=== PATIENT | female | born 1970 | race Caucasian/White ===

== ENCOUNTER 2023-06-24 18:56 | Emergency (ER) | payer MEDICAID, MEDICARE ==
[~2023-06-24] VITALS: Ht 160 cm; Wt 81.8 kg
[~2023-06-24 18:56] MED LIST: ARIP30TA PO; DIVA250T4 PO; MIRT-149 PO
[2023-06-24 19:45] LABS: BASOPHILS % (AUTO) 0.3 % (0.0-2.0); EOSINOPHILS % (AUTO) 0.1 % (1.0-6.0); HEMATOCRIT 39.5 % (36-46); LYMPHOCYTES # (AUTO) 2.1 K/uL (1.0-4.8); LYMPHOCYTES % (AUTO) 17.4 % (22.0-44.0); MEAN CORPUSCULAR HEMOGLOBIN 29.2 pg (26.0-34.0); MEAN CORPUSCULAR HGB CONC 32.8 G/dL (31.0-37.0); MEAN CORPUSCULAR VOLUME 89 fL (80-100); MONOCYTES # (AUTO) 0.7 K/uL (0.1-1.0); MONOCYTES % (AUTO) 5.9 % (2.0-9.0); NEUTROPHILS # (AUTO) 9.3 K/uL (1.8-7.7); NEUTROPHILS % (AUTO) 76.3 % (40.0-70.0); PLATELET COUNT (AUTO) 235 K/uL (150-450); RED BLOOD CELL COUNT(AUTO) 4.44 MIL/uL (4.00-5.20); RED CELL DISTRIBUTION WIDTH 14.1 % (11.5-14.5); WHITE BLOOD COUNT (AUTO) 12.2 K/uL (4.5-11.0)
[2023-06-24 20:02] LABS: ALCOHOL, BLOOD (SERUM) < 3 mg/dL (0-10)
[2023-06-24 20:15] LABS: ALANINE AMINOTRANSFERASE 35 U/L (12-78); ALBUMIN 3.9 g/dL (3.4-5.0); ALKALINE PHOSPHATASE 103 U/L (46-116); ASPARTATE AMINOTRANSFERASE 18 U/L (15-37); CALCIUM, TOTAL 9.4 mg/dL (8.8-10.5); TOTAL PROTEIN, SERUM 7.5 g/dL (6.4-8.2)
[2023-06-24 20:26] LABS: ANION GAP 9 mmol/L (8-16); BILIRUBIN,TOTAL 0.3 mg/dL (0.1-1.0); CARBON DIOXIDE 27 mmol/L (22-29); CHLORIDE 105 mmol/L (98-107); CREATININE 0.79 mg/dL (0.60-1.30); GLOMERULAR FILTR. RATE CALC > 60 mL/min (>60); GLUCOSE,RANDOM 107 mg/dL (70-110); POTASSIUM 3.6 mmol/L (3.5-5.1); SODIUM SERUM 141 mmol/L (136-145); UREA NITROGEN, BLOOD 11 mg/dL (7-18); VALPROIC ACID 4 mcg/mL (50-100)
[2023-06-24 21:58] LABS: COVID AG,FIA SOURCE NPH
[2023-06-24 22:10] LABS: SARS-COV2 (COVID) ANTIGEN,FIA Negative (Negative)
[2023-06-24 22:11] VITALS: BP 110/76; PULSE 99; RESP 16; TEMP 98
[2023-06-24 22:12] LABS: AMPHET/METH SCREEN,URINE NEGATIVE (NEGATIVE); BARBITURATE SCREEN, URINE NEGATIVE (NEGATIVE); BENZODIAZEPINES SCREEN,URINE NEGATIVE (NEGATIVE); CANNABINOID SCREEN,URINE NEGATIVE (NEGATIVE); COCAINE SCREEN,URINE NEGATIVE (NEGATIVE); METHADONE SCREEN, URINE NEGATIVE (NEGATIVE); OPIATE SCREEN,URINE NEGATIVE (NEGATIVE); PHENCYCLIDINE SCREEN,URINE NEGATIVE (NEGATIVE)
[2023-06-24 22:13] LABS: ALCOHOL, URINE DRUG SCREEN NEGATIVE (NEGATIVE)
== END 2023-06-25 01:12 | disposition home or self-care (01) ==
LOC: EMS 18:56
DX: R45.851 Suicidal ideations (principal); F20.9 Schizophrenia, unspecified; Z04.6 Encounter for general psychiatric examination, requested by authority; Z20.822 Contact with and (suspected) exposure to COVID-19
CPT/HCPCS: 99285; 87426; 80053; 80164; 85025; 36415; 80307; G0480